=== PATIENT | male | born 1960 | race Caucasian/White ===

== ENCOUNTER 2017-10-08 16:14 | Inpatient (IN) | payer OTHER ==
[~2017-10-08] VITALS: Ht 177.8 cm; Wt 108.9 kg
[2017-10-08 16:58] LABS: ABSOLUTE BASOPHIL COUNT 0 /CUMM (0.0-0.2); ABSOLUTE EOSINOPHIL COUNT 0.1 /CUMM (0.0-0.7); ABSOLUTE GRANULOCYTE CT 5.3 /CUMM (1.4-6.5); ABSOLUTE LYMPH COUNT 1.9 /CUMM (1.2-3.4); ABSOLUTE MONOCYTE COUNT 0.5 /CUMM (0.10-0.60); BASOPHIL % 0.1 % (0.0-2.0); EOSINOPHIL % 1.2 % (0-5); GRANULOCYTE % 68.1 % (42.2-75.2); HEMATOCRIT 44.6 % (42-52); MEAN CORPUSCULAR HGB 30.6 PG (27.0-31.0); MEAN CORPUSCULAR HGB CONC 33.8 G/DL (33.0-37.0); MEAN CORPUSCULAR VOLUME 90.8 FL (80.0-94.0); MEAN PLATELET VOLUME 7.9 FL (7.4-10.4); PLATELET COUNT 252 /CUMM (130-400); RBC DISTRIBUTION WIDTH 13.4 % (11.5-14.5); RED BLOOD CELL CT 4.92 /CUMM (4.70-6.10); WHITE BLOOD CELL COUNT 7.8 /CUMM (4.8-10.8)
--- NOTE | 2017-10-08 17:38 | RADIOLOGY REPORT ---
EXAMINATION: XR CHEST CLINICAL INFORMATION: Chest pain. COMPARISON: 06/23/2008. TECHNIQUE: 2 views of the chest were obtained. FINDINGS: No significant abnormality is noted involving the heart, lungs, mediastinum, bony thorax or soft tissues. IMPRESSION: Unremarkable examination.
--- NOTE | 2017-10-08 18:29 | Cons- Cardiology ---
General Information and HPI Consulting Request Date of Consult: 10/08/17 Requested By: ER History of Present Illness: Denys is a 57 year old male who carries a history of dyslipidemia and GERD as well as documented coronary artery disease. A 50% distal stenosis of the RCA was noted during the patient's prior cardiac catheterization. In response to chest discomfort, this patient underwent a stress test which was negative for myocardial ischemia and showed a normal EF. An echocardiogram was also obtained which showed an overall normal ejection fraction of 58% with mild left ventricular hypertrophy. Biatrial enlargement was also noted. In terms of cardiac valves, there was evidence of mild mitral regurgitation, trace tricuspid regurgitation, and trace pulmonic and aortic insufficiency. Yesterday, this patient noted chest discomfort for an extended period of time although it eventually abated. He came to my office for evaluation of recurrent chest pain that began about an hour prior to presentation. It was described as severe and pleuritic with radiation to his neck but not his arms. There was no association with exertion but he did note some nausea. Otherwise he was without shortness of breath, ligthheadedness or palpitations. His ECG showed a sinus rhythm without ischemia electrocardiographic changes. It should be noted that at his baseline he does have a mild exertional chest discomfort that will, at times, radiate to his back and neck. I did opt to repeat his cardiac catheterization which showed diffuse luminal irregularities with a normal EF of 55% and no flow limiting disease. He also gets winded easily with physical activity but is comfortable at his usual level of activity. This patient's prior episodes of discomfort were atypical. One was a mild to moderate right sided discomfort that began while walking and resolved after drinking coffee and taking an aspirin. It was non-radiating and not associated with nausea, vomiting or diaphoresis. He has less stress now that he is multiple years post his divorce. Nevertheless it should be recalled that he previously had some right upper chest discomfort. I did start the patient on losartan and his blood pressure is dramatically improved from when I last saw him. On last visit he reported occasional brief palpitations which were more prominent at night and lasted for about a minute. They were not associated with shortness of breath or lightheadedness. He did stop his crestor which gave him abdominal discomfort. He also continues to smoke. To Review the Patient's Past History: This patient has experienced some degree of chest discomfort over the past two to four years which, on last visit, he felt had become progressively more frequent to the point that he was having symptoms every other day. It was described as a moderate intensity pressure or tightness that radiated up to his left arm and shoulder which is somewhat different than what he is describing today. There was, on some occasions, some associated neck tightness and rarely the discomfort radiated to his back. The discomfort was associated with occasional diaphoresis and was often accompanied by palpitations. The patient also complained of exercise intolerance characterized by shortness of breath and a wiped out feeling where he had no energy to engage in further activity. The discomfort was not pleuritic and had no positional component. It was not exacerbated by physical exertion but rather often occurred at rest. I initially saw this patient in 2006 for a mild non-radiating chest pressure. In consideration of these symptoms plus risk factors, he was risk stratified with a stress test that showed anterior wall ischemia. A subsequent cardiac catheterization performed in March of 2006 showed a long normal left main. The LAD had luminal irregularities. The left circumflex was normal and only of moderate size. The right coronary artery was dominant with a 50% distal non- flow limiting stenosis and it was felt that this RCA lesion was the cause of his stress test results. I did not feel that the lesion was significantly obstructive to require angioplasty despite the abnormality noted on the stress test and therefore medical therapy was pursued. Left ventriculography at that time showed an overall EF of 55%. Allergies/Medications Allergies: Coded Allergies: tetracycline (Intermediate, NAUSEA 10/08/17) Home Med List: Atorvastatin Calcium 20 MG TABLET 1 TAB PO DAILY STATIN (Reported) Losartan Potassium 50 MG TABLET 1 TAB PO DAILY HTN (Reported) Review of Systems Review of Systems: A twelve point review of systems is unremarkable. 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 Other Medical Hx: Mononucleosis Surgical History Surgical History: arthroscopic knee surgery on right x 2, left elbow surgery for a fracture, tonsillectomu Psychosocial History Smoking Status: Former Smoker ETOH Use: occasional use (two drinks per day) Illicit Drug Use: denies illicit drug use Exam & Diagnostic Data Vital Signs and I&O Vital Signs Date Time Temp Pulse Resp B/P B/P Pulse O2 O2 Flow FiO2 Mean Ox Delivery Rate 10/08 2309 98.8 94 20 132/80 97 Room Air 10/08 1929 98.6 107 18 130/76 96 Room Air 10/08 1637 98.1 98 18 142/94 98 Room Air Room Air Physical Exam: General: WD/WN male in NAD; alert and oriented x 3 HEENT: NC/AT, PERRL, EOMI Neck: no JVD, no carotid bruit Heart: RRR w/o murmur Lungs: clear bilaterally ABdomen: soft, NT, +ve bowel sounds Extremities: no edema Assessment/Plan Assessment/Plan * Denys has a history of atypical chest discomfort without any documented evidence of flow limiting coronary atherosclerosis. He now has a prolonged recurrent episode of chest discomfort. Despite its prolonged course there is no rise in cardiac enzymes or electrocardiographic changes. In consideration of the patient's tachycardia, pleuritic chest discomfort and very high D-dimer I would treat for a pulmonary embolism. Begin IV heparin and obtain a lower extremity ultrasound. * Obtain an echocardiogram * Follow three sets of cardiac enzymes and monitor on telemetry. Consult Acknowledgment - Thank you for your consult request.
--- NOTE | 2017-10-08 19:22 | ED CARDIAC/CP/PALPITATIONS ---
History of Present Illness General Chief Complaint: Chest Pain Stated Complaint: CHEST DISCOMFORT Source: patient Exam Limitations: no limitations Vital Signs & Intake/Output Vital Signs & Intake/Output Vital Signs Date Time Temp Pulse Resp B/P B/P Pulse O2 O2 Flow FiO2 Mean Ox Delivery Rate 10/08 2353 98.5 108 18 141/89 96 Room Air 10/08 2309 98.8 94 20 132/80 97 Room Air 10/08 1929 98.6 107 18 130/76 96 Room Air 10/08 1637 98.1 98 18 142/94 98 Room Air Room Air ED Intake and Output 10/09 0000 10/08 1200 Intake Total Output Total Balance Patient 240 lb Weight Weight Reported by Patient Measurement Method Allergies Coded Allergies: tetracycline (Intermediate, NAUSEA 10/08/17) Triage Note: PT TO ED WITH C/O RIGHT CHEST PAIN WHILE DRIVING HOME FROM WORK, " IT STARTED YESTERDAY, BUT IT GOT BETTER, NOT COMPLETELY BETTER". Triage Nurses Notes Reviewed? yes Onset: Gradual Duration: hour(s): Timing: recent history Quality/Severity: moderate Location: substernal Radiation: neck Activities at Onset: rest Prior Chest Pain/Card Workup: cardiac cath Aspirin Today: 325 mg x 1 HPI: 57yo male with hx of HTN, daily tobacco smoker, CAD on ASA 325mg sent in by Dr. Pak for chest pain. PAtient states he experienced gradually increasing chest pain yesterday described as substernal, -09/04. Chest pain described as pleuritic, radiating upward toward the neck and head with deep breaths. Patient took aspirin at the time and noticed chest pain gradually decrease with time. Patient states he had slight discomfort overnight however was not concerned. Patient states that today while he was driving around 3 PM he experienced concerning substernal chest pain again, 09/04. This prompted his visit to see Dr. Pak who recommended he reported here to emergency department for further evaluation. Since patient has been here in the emergency department his pain has improved, currently he reports mild discomfort to right chest, 05/05. Patient states he has had chest pain in the past and had cardiac catheterization which did not require stent placement. Patient denies dyspnea, abdominal pain, syncope, hemoptysis. (Soraya REGAN,Alcira Adams) Reconcile Medications Atorvastatin Calcium 20 MG TABLET 1 TAB PO DAILY STATIN (Reported) Losartan Potassium 50 MG TABLET 1 TAB PO DAILY HTN (Reported) (Alix ASHBY,Jani Vigil) Past History Travel History Traveled to [place] past 21 day No Medical History Any Pertinent Medical History? 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 No (Alcira Woodward) Review of Systems Review of Systems Constitutional: Reports: no symptoms. EENTM: Reports: no symptoms. Respiratory: Reports: no symptoms. Cardiovascular: Reports: see HPI. GI: Reports: no symptoms. Genitourinary: Reports: no symptoms. Musculoskeletal: Reports: no symptoms. Skin: Reports: no symptoms. Neurological/Psychological: Reports: no symptoms. Hematologic/Endocrine: Reports: no symptoms. Immunologic/Allergic: Reports: no symptoms. All Other Systems: Reviewed and Negative (Alcira Woodward) Physical Exam Physical Exam General Appearance: well developed/nourished, no apparent distress, alert, awake Head: atraumatic, normal appearance Eyes: Bilateral: normal appearance. Ears, Nose, Throat: hearing grossly normal Neck: normal inspection, supple, full range of motion Respiratory: normal breath sounds, chest non-tender, no respiratory distress, lungs clear Cardiovascular: regular rate/rhythm, normal peripheral pulses Gastrointestinal: normal bowel sounds, soft, non-tender, no organomegaly Back: normal inspection, normal range of motion Extremities: normal inspection, normal range of motion Neurologic/Psych: awake, alert, oriented x 3 Skin: intact, normal color, warm/dry Core Measures ACS in differential dx? Yes CVA/TIA Diagnosis No Sepsis Present: No Sepsis Focused Exam Completed? No (Alcira Woodward) Progress Differential Diagnosis: AMI, costochondritis, musculoskeletal pain, myocarditis, pericarditis, pneumonia, pulmonary embolism, unstable angina Plan of Care: Orders Procedure Date/time Status Heart Healthy Diet 10/08 D Complete Weight 10/08 2354 Active Teach/Educate 10/08 235 Active Pain Treatment and Response 10/08 235 Active Nutritional Intake, Monitor 10/08 2353 Active Isolation 10/08 2353 Active Patient Care Conference 10/08 2353 Active Activity/Ambulation 10/08 235 Active Discharge Patient 10/08 2349 Active Pathway - chart 10/08 2301 Active Code Status 10/08 225 Active Patient Data 10/09 2111 Active Saline Lock 10/08 2033 Active Misc Message 10/08 2033 Active ED Holding Orders 10/08 2033 Active Admit to inpatient 10/08 2033 Active Vital Signs 10/08 2033 Active Code Status 10/08 2033 Complete TROPONIN LEVEL 10/08 1950 Complete EKG 10/08 1950 Active Intake & Output 10/08 192 Active Add-on Test (ER Only) 10/08 192 Active Telemetry/Corn Miller 10/08 1854 Active D-DIMER 10/08 1649 Complete TROPONIN LEVEL 10/08 1642 Complete PHOSPHORUS 10/08 1642 Complete MAGNESIUM 10/08 1642 Complete COMPREHENSIVE METABOLIC PANEL 10/08 1642 Complete CBC WITHOUT DIFFERENTIAL 10/08 1642 Complete EKG 10/08 1615 Active EKG 10/08 0200 Active VTE Mechanical Prophylaxis 10/08 UNK Active Laboratory Tests 10/08/172012: Troponin I < 0.01 10/08/17 1649: Anion Gap 11, Estimated GFR > 60, BUN/Creatinine Ratio 12.2, Glucose 188 H, Calcium 10.0, Phosphorus 4.2, Magnesium 1.6, Total Bilirubin 0.9, AST 22, ALT 37 , Alkaline Phosphatase 89, Troponin I < 0.01, Total Protein 7.8, Albumin 4.5, Globulin 3.3, Albumin/Globulin Ratio 1.4, D-Dimer High Sensitivty 1908 H, CBC w Diff NO MAN DIFF REQ, RBC 4.92, MCV 90.8, MCH 30.6, MCHC 33.8, RDW 13.4, MPV 7.9 , Gran % 68.1, Lymphocytes % 23.9, Monocytes % 6.7, Eosinophils % 1.2, Basophils % 0.1, Absolute Granulocytes 5.3, Absolute Lymphocytes 1.9, Absolute Monocytes 0.5, Absolute Eosinophils 0.1, Absolute Basophils 0 10/08/17 0200: Troponin I Cancelled Initial EKG shows sinus tachycardia, no acute ischemic changes. Troponin enzyme is negative. Patient sitting comfortably in stretcher, he is in no acute distress, his vital signs are stable. D-dimer pending. Repeat troponin and EKG are pending. The patient was seen and evaluated by Dr. Pak here in the ED. d-dimer positive, will obtain CTA to assess for PE Spoke with Dr. Pak who recommends hospital admission given active chest pain. Case management agree with full admission. Patient is still comfortable in stretcher, no distress. THe patient was signed out to Dr. Thomson pending CTA and admission. Diagnostic Imaging: Viewed by Me: Radiology Read. Discussed w/RAD: Radiology Read. CXR Impression: PATIENT: DWAIN WARE PRESENT AGE: 57 PATIENT ACCOUNT NO: [id number] : 62 LOCATION: [facility] ORDERING PHYSICIAN: Madelyn REGAN SERVICE DATE: 10/08/17 EXAM TYPE: RAD - XRY-CHEST XRAY, TWO VIEWS EXAMINATION: XR CHEST CLINICAL INFORMATION: Chest pain. COMPARISON: 06/23/2008. TECHNIQUE: 2 views of the chest were obtained. FINDINGS: No significant abnormality is noted involving the heart, lungs, mediastinum, bony thorax or soft tissues. IMPRESSION: Unremarkable examination. DICTATED BY: Lewis Miranda MD DATE/TIME DICTATED:10/08/171731 UTILITY PLANT OPERATIVE:NIXON DATE/TIME TRANSCRIBED:10/08/171731 CONFIDENTIAL, DO NOT COPY WITHOUT APPROPRIATE AUTHORIZATION. <Electronically signed in Other Vendor System> SIGNED BY: Lewis Miranda MD 10/08/171737 Initial ED EKG: sinus tachycardia @101bpm, nonspecific ST changes (Soraya REGAN,Alcira Adams) Departure Departure Disposition: STILL A PATIENT Condition: Stable Clinical Impression Primary Impression: Chest pain Referrals: Carlos Muhammad DO (PCP/Family) Additional Instructions: Follow up with Dr. Pak in the office. Return with worsening symptoms or concerns. Please note that there might be incidental findings in your evaluation that are unrelated to the current emergency department visit. Please notify your primary care doctor about this emergency department visit in order to obtain and review all of the testing performed so that these incidental findings can be monitored as needed. If you had an x-ray performed, please understand that some fractures may not be seen on the initial set of x-rays. If your symptoms persist you might need a repeat set of x-rays to check for such a fracture. If you had a laceration evaluated, please understand that foreign bodies such as glass or wood may not be visible to the naked eye or on plain x-rays. If the wound becomes red, swollen, increasingly more painful or if there is any drainage from the wound, please have it reevaluated by a physician for the possibility of a retained foreign body. If you're unable to follow up as outlined in the discharge instructions please return to the emergency department. Thank you for choosing the [facility] Emergency Department for your care. It was a pleasure to serve you today. Departure Forms: Customer Survey General Discharge Information (Alcira Woodward) Admission Note Spoke With: Miguel Padilla MD Documentation of Exam: Documentation of any treatments & extenuating circumstances including Concerns Regarding Discharge (functional status, medication knowledge or non-compliance, living conditions, etc.) that warrant an admission rather than observation: pt with chest pain, h/o cad, cardiac cath... pt evaluated by dr. pak... to be admitted for serial trops/ekg, cards to re-eval in AM. PA/PUBLIC HEALTH SANITARIAN Co-Sign Statement Statement: ED Attending supervision documentation- [x] I saw and evaluated the patient. I have also reviewed all the pertinent lab results and diagnostic results. I agree with the findings and the plan of care as documented in the PA's/PUBLIC HEALTH SANITARIAN's documentation. 10/08/17, 20:31... pt with cad, chest pain, first trop neg... elevated dimer... pt to have ct angio, admission for further evaluation [] I have reviewed the ED Record and agree with the PA's/PUBLIC HEALTH SANITARIAN's documentation. [] Additions or exceptions (if any) to the PAs/PUBLIC HEALTH SANITARIAN's note and plan are summarized below: [] (Alix ASHBY,Jani Vigil) Critical Care Note Critical Care Note Critical Care Time: non-applicable (Alcira Woodward) Critical Care Note Critical Care Time: 30-74 min (Alix ASHBY,Jani Vigil)
--- NOTE | 2017-10-08 21:00 | History & Physical ---
Niharika Trevizo 10/08/172057: General Information and HPI MD Statement: I have seen and personally examined DWAIN WARE and documented this H&P. The patient is a 57 year old M who presented with a patient stated chief complaint of chest pain. Source of Information: patient, old records History of Present Illness: Patient is a 57 year old male with past medical history of CAD s/p clean cath x 2 (last 2 years ago), hypertension, hyperlipidemia, tobacco smoker who was sent to ED by Dr. Pak for ongoing chest pain. Patients chest pain started yesterday around 2PM while watching golf at rest. Pain described as a 6/10, pressure like as if someone standing on his chest with their foot, located at upper chest and radiating to right side. Pain was worse with inspiration. Patient claimed to have taken a few aspirin and felt better however continued to be uncomfertable through the night. Patient had coffee in the morning before work and continued to have some discomfort. On his drive from work today 10/08/17 , he experienced the same presentation of the chest pain that now would radiate to the right side of his neck. Patient denied any nausea, vomiting, diaphoresis, shortness of breath, diarrhea, headache, dizziness. Patient follows Dr. Pak as cardiology for quite a while for on going chest discomfort. Patient has an extensive smoking history since 2009 after his divorce. He has intermittently cut down on smoking to 1/2 pack a day for past 6 months but was alot more in past. Claims to have tried Chantix that worked in past but not able to afford it recently. Admits to drinking alcohol occasionally. 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 Patient has been very motivated to exercise lately and states he has been biking and swimming more often. He has been tolerating PO well and claiming to sleep better since exercising. ROS: +Chesp pain at upper chest radiating to left neck/ear Smokin/2 pack a day for last 6 months; Started in 2009 Alcohol: Occasional Family Hx: Father [place] (age 85) NOTE: Minutes after admission, patient decided to leave AMA. Allergies/Medications Allergies: Coded Allergies: tetracycline (Intermediate, NAUSEA 10/08/17) Past History Travel History Traveled to [place] past 21 day No Medical History Neurological: NONE EENT: NONE Cardiovascular: hypertension, hyperlipidemia Respiratory: NONE Gastrointestinal: GERD Hepatic: NONE Renal: KIDNEY STONES Musculoskeletal: NONE Psychiatric: NONE Endocrine: diabetes Blood Disorders: NONE Cancer(s): NONE MANAGER HOSPITALITY/Reproductive: NONE Other Medical Hx: Mononucleosis Surgical History Surgical History: arthroscopic knee surgery on right x 2 left elbow surgery for a fracture tonsillectomu Past Family/Social History Psychosocial History Smoking Status: Former Smoker ETOH Use: occasional use (two drinks per day) Illicit Drug Use: denies illicit drug use Review of Systems Review of Systems Constitutional: Denies: see HPI. Exam & Diagnostic Data Last 24 Hrs of Vital Signs/I&O Vital Signs Date Time Temp Pulse Resp B/P B/P Pulse O2 O2 Flow FiO2 Mean Ox Delivery Rate 10/089 98.6 107 18 130/76 96 Room Air 10/08 1637 98.1 98 18 142/94 98 Room Air Room Air Physical Exam General Appearance Alert, Oriented X3, Cooperative, No Acute Distress Skin No Rashes, No Breakdown, No Significant Lesion HEENT Atraumatic, PERRLA, EOMI, Mucous Membr. moist/pink Neck No JVD, No thryomegaly Cardiovascular Regular Rate, Normal S1, Normal S2, No Murmurs Lungs Clear to Auscultation, Normal Air Movement Abdomen Normal Bowel Sounds, Soft, No Tenderness Neurological Normal Speech, Strength at 5/5 X4 Ext, Normal Tone, Sensation Intact, Cranial Nerves 3-12 NL, Reflexes 2+ Extremities No Clubbing, No Cyanosis, No Edema Vascular Normal Pulses, Pulses Symmetrical Last 24 Hrs of Labs/Adeel: Laboratory Tests 10/08/172012: Troponin I < 0.01 10/08/17 1649: Anion Gap 11, Estimated GFR > 60, BUN/Creatinine Ratio 12.2, Glucose 188 H, Calcium 10.0, Phosphorus 4.2, Magnesium 1.6, Total Bilirubin 0.9, AST 22, ALT 37 , Alkaline Phosphatase 89, Troponin I < 0.01, Total Protein 7.8, Albumin 4.5, Globulin 3.3, Albumin/Globulin Ratio 1.4, D-Dimer High Sensitivty 1908 H, CBC w Diff NO MAN DIFF REQ, RBC 4.92, MCV 90.8, MCH 30.6, MCHC 33.8, RDW 13.4, MPV 7.9 , Gran % 68.1, Lymphocytes % 23.9, Monocytes % 6.7, Eosinophils % 1.2, Basophils % 0.1, Absolute Granulocytes 5.3, Absolute Lymphocytes 1.9, Absolute Monocytes 0.5, Absolute Eosinophils 0.1, Absolute Basophils 0 10/08/17 0200: Troponin I Cancelled Diagnostic Data EKG Results Sinus Tachycardia 101, V5/V6 nonspecific changes CXR Results Negative Assessment/Plan Assessment: Patient is a 57 year old male with PMH of CAD on ASA 325, HTN, HLD, daily smoker sent by Dr. Pak of cardiology for chest pain. Patient has been having on going chest discomfort for several years which he has been worked up by Dr. Pak including 2 clean cardiac caths (last 2 years ago). Negative troponins X 2 in ED. EKG sinus tachycardia HR 101, V5/V6 nonspecific changes. D dimer elevated on admission with negative CTA. Patient seen by Dr. Pak of Cardiology in the Emergency Department. NOTE: Minutes after admission, patient decided to leave AMA as he did not want to spend the night. He stated he would call Dr. Pak in the AM. Patient had clear judgement and understood any consequences of the situation. EMERGENCY MEDICINE: Vitals: 98.1, 98, 102 HR, 18, 142/94, 98% RA EKG: Sinys Tachy HR 101, V5/V6 non specific changes TRoponin: Negative X 2 CBC: WBC 7.8, Hgb: 15.1, Hct: 44.6, Plt: 252 Chemistry: Na 130, K 3.7, Cl 95, Co2 25, BUN 11, Cr 0.9, glucose 188 D- DIMER: 1908 CXR: Unremarkable examination. CTA: Negative for PE PROBLEM LIST: 1. Non-specific Chest Pain - rule out ACS/GERD 2. Hypertension PLAN: * Admit to telemetry for closer monitoring * Serial EKG/Troponins * Dr. Pak of Cardiology has seen patient in ED * Continue ASA 325mg daily * Continue home meds Losartan + Atorvastatin * GI Cocktail for possible GERD symptoms Code Status: DNR/DNI DVT PPx: Heparin SC Diet: Heart Healthy/ NPO for breakfast in case of procedure As Ranked By This Provider Problem List: 1. Chest pain Core Measures/Misc (11/12) Acute Coronary Syndrome ACS Diagnosis: No Congestive Heart Failure Congestive Heart Failure Diagnosis No Cerebrovascular Accident CVA/TIA Diagnosis: No VTE (View Protocol) VTE Risk Factors Age>40 No Mechanical VTE Prophylaxis d/t N/A MechProphylax Ordered No VTE Pharm Prophylaxis d/t NA PharmProphylax ordered Sepsis (View protocol) Sepsis Present: No If YES complete Sepsis Event Note If YES complete Sepsis Event Note Aydee Gonzalez 10/08/17 2244: General Information and HPI Allergies/Medications Home Med list Atorvastatin Calcium 20 MG TABLET 1 TAB PO DAILY STATIN (Reported) Losartan Potassium 50 MG TABLET 1 TAB PO DAILY HTN (Reported) Core Measures/Misc (11/12) Sepsis (View protocol) If YES complete Sepsis Event Note If YES complete Sepsis Event Note Resident Review Statement Resident Statement: examined this patient, discussed with physician general internal medicine, agreed with physician general internal medicine Other Findings: Patient is 57-year-old male with past medical history significant for GERD, hypertension, current smoker, who came with a chief complaint of chest discomfort. Patient states that it started yesterday around 2 PM when he was watching a golf game on TV and having a beer. The chest discomfort radiated to his right side of the neck on deep inspiration and lasted for approximately 3 hours. It subsided on its own. Patient noticed that he experienced similar chest discomfort today again when he was driving back from work which was around 3 PM. Patient went to see Dr. Pak at that time and was sent to [facility]. Patient has already been in ER by Dr. Pak. Patient states that he has had cardiac cath X 2, which was normal, last one was 2 years ago, his Cardec stress test from 10 years ago was also normal. He does not remember when his last echocardiogram was. Patient describes his chest pain as pressure-like discomfort, in the central face chest, worsened by deep breathing, patient states that the pain radiates to his right side of the neck. Its 6/10 at worst and currently it is 1/10 in ER. Review of system is negative for any current dizziness, chest pain, shortness of breath, abdominal discomfort, burning micturition, weakness or swelling of lower extremities. Of note patient reports a 1/10 headache in ER. He lives independently and phq2 = 0 Labs and vitals as above CTA done in ER was negative for pulmonary embolism Problem list #1 nonspecific chest pain rule out ACS/rule out GERD #2 history of hypertension #3 current smoker Assessment and plan Patient will be admitted to telemetry floor for closer monitoring, will do serial troponins and EKGs. His first set of troponin is negative and EKG is sinus tachycardia 11 with nonspecific T changes in V5V6. Dr. Pak has already seen the patient. Will give him GI cocktail to see if his symptoms resolve. We'll continue rest of his home meds including losartan and atorvastatin. We'll continue daily aspirin, of note patient says he takes 325 mg aspirin daily VT prophylaxis according his Lovenox Patient wants to be DNR/DNI, and does not endorse any signs or symptoms of depression. Soon after admission, got a call from ER that patients wants to leave AMA as he was told that he would have to stay over night in ER as tele beds are not avaliable. Medical team tried to convince the patient to stay but he stated that he wants to comfortably sleep in his beed and see dr. Pak in am. Patient was explained all the risks for signin AMA, he showed clear undertstanding, signed AMA papers and was discharged. Miguel Padilla MD 10/09/17 0130: Core Measures/Misc (11/12) Sepsis (View protocol) If YES complete Sepsis Event Note If YES complete Sepsis Event Note Attending MD Review Statement Attending Statement Attending MD Statement: examined this patient, discuss w/resident/PA/INTERFACE ANALYST, agreed w/resident/PA/INTERFACE ANALYST Attending Assessment/Plan: Patient is seen and examined independently by me. Care plan discussed with medical dir and resident. I agree with the physical exam findings and plan of care as outlined above with the following changes and additions. 57 yo M with history of CAD s/p cath x2 with 50% RCA distal stenosis, echo with EF 58%, HTN, HLD, GERD, chronic smoker, presented with 2 days of intermittent SSCP with heaviness which radiates to his right neck. Troponin negative x2. D- dimer 1908. CTA chest shows no acute PE. Patient is admitted to [facility] for chest pain and elevated D-dimer. However, soon after admission, patient wants to leave the hospital. He states he has no further chest pain and wants to go home and sleep. I have advised him to stay because of recurrent chest pain and need to be evaluated. He is competent and he insisted on leaving AMA. I advised him to return to ED for evaluation if there is CP, SOB, dizzines, lightheadedness, palpitation, weakness, abdominal pain, nausea/vomiting or leg swelling. residential sales manager is going to contact Dr. Pak and inform him of patient's AMA. Miguel Padilla MD FACP
--- NOTE | 2017-10-08 22:11 | CT SCAN REPORT ---
EXAMINATION: CT ANGIOGRAM OF THE CHEST WITH AND WITHOUT CONTRAST (CT PULMONARY ANGIOGRAM FOR PE) CLINICAL INFORMATION: CHEST PAIN, +D-DIMER COMPARISON: None TECHNIQUE: Prior to contrast administration, noncontrast localization images were obtained. Subsequently, multidetector volumetric imaging was performed from the thoracic inlet to below the diaphragms following the administration of 95 mL Optiray 320 intravenous contrast. No contrast reaction reported. Sagittal, coronal, and MIP oblique sagittal reformatted images were obtained on the CT workstation, uploaded to PACS, and reviewed. Total exam dose-length product 949.49 mGy-cm. FINDINGS: QUALITY OF STUDY/CONTRAST BOLUS: Satisfactory PULMONARY ARTERIES: No central or segmental pulmonary emboli. THORACIC AORTA: No aneurysm or dissection. LUNG: No focal consolidation, nodules or masses. PLEURA: No pleural effusion or pneumothorax. MEDIASTINUM: Normal heart size. No pericardial effusion. No hilar or mediastinal lymphadenopathy. No evidence of septal bowing or right heart strain. There is vascular calcification of coronary arteries. CHEST WALL/AXILLA: No axillary or internal mammary lymphadenopathy. OSSEOUS STRUCTURES: No acute or suspicious osseous abnormality. There is degenerative spondylosis of the spine with multilevel endplate spurring of the vertebrae. UPPER ABDOMEN: Unremarkable. No reflux of contrast into the hepatic veins to suggest elevated right heart pressures. There is a 3 cm cortical cyst at the upper pole left kidney. There is a calcified granuloma in the inferior left lobe of liver IMPRESSION: No acute abnormality CT scan of the chest. No evidence of pulmonary embolism. VTE: negative
[2017-10-08] MEDS ORDERED: ATORVASTATIN CA20 M1 PO (22:28)
[2017-10-08] MEDS ORDERED: LOSARTAN POTASS50 M1 PO (22:28)
--- NOTE | 2017-10-08 23:50 | Patient Discharge Instructions ---
Discharge Instructions General Discharge Information Special Instructions: PATIENT IS LEAVING AMA Acute Coronary Syndrome Inclusion Criteria At DC or during hospital stay patient has or had the following: ACS DIAGNOSIS No Discharge Core Measures Meds if any: Prescribed or Continued at Discharge Meds if any: NOT Prescribed or Continued at Discharge Congestive Heart Failure Inclusion Criteria At DC or during hospital stay patient has or had the following: CHF DIAGNOSIS No Discharge Core Measures Meds if any: Prescribed or Continued at Discharge Meds if any: NOT Prescribed or Continued at Discharge Cerebrovascular accident Inclusion Criteria At DC or during hospital stay patient has or had the following: CVA/TIA Diagnosis No Discharge Core Measures Meds if any: Prescribed or Continued at Discharge Meds if any: NOT Prescribed or Continued at Discharge Venous thromboembolism Inclusion Criteria VTE Diagnosis No VTE Type NONE VTE Confirmed by (Test) NONE Discharge Core Measures - Per Current guidelines, there needs to be overlap - treatment for the first 5 days of Warfarin therapy. - If discharged on Warfarin prior to 5 days of - overlap therapy, the patient will need to be - assessed for post discharge needs including - *Post discharge parental anticoagulation - *Warfarin and/or parental anticoagulation education - *Follow up date to check INR post discharge At least 5 days overlap therapy as Inpatient No Meds if any: Prescribed or Continued at Discharge Note: Overlap Therapy is Warfarin and Anticoagulant Meds if any: NOT Prescribed or Continued at Discharge
[2017-10-08 23:53] VITALS: BP 141/89
== END 2017-10-09 00:12 | disposition left against medical advice (07) | DRG 313 ==
LOC: ERH 16:14 → ERHI 20:34
PROVIDERS: Physician Assistant
DX: R07.9 Chest pain, unspecified (principal); I25.10 Atherosclerotic heart disease of native coronary artery without angina pectoris; Z98.61 Coronary angioplasty status; I10 Essential (primary) hypertension; E78.5 Hyperlipidemia, unspecified; F17.210 Nicotine dependence, cigarettes, uncomplicated; K21.9 Gastro-esophageal reflux disease without esophagitis; E11.9 Type 2 diabetes mellitus without complications; Z66 Do not resuscitate; Z88.1 Allergy status to other antibiotic agents
CPT/HCPCS: ERO; 71046; 82436; 93005; 93010; J1650